=== PATIENT | female | born 1935 | race African-American/Black ===

== ENCOUNTER 2019-04-06 18:46 | Inpatient (IN) | payer MEDICARE, OTHER ==
[~2019-04-06] VITALS: Ht 162.6 cm; Wt 63.6 kg
[2019-04-06 18:51] VITALS: BP 123/90
--- NOTE | 2019-04-06 18:51 | NUR ---
ED Nurse Note: Pt BIBA med reach d/t elevated BUN 69. Pt has hx of CKD but not on dialysis. Pt is AAO x4, ambulaotry with unlabored breathing. Skin is intact.
--- NOTE | 2019-04-06 19:11 | NUR ---
ED Nurse Note: Patient resting with daughter at bedside, has no complaints at this time.
--- NOTE | 2019-04-06 19:11 | NUR ---
HAND-OFF: Report given to Phoebe ABREU.
[2019-04-06 19:38] LABS: ANION GAP 12 mmol/L (5-15); BLOOD UREA NITROGEN 75 mg/dL (7-18); CALCIUM 8.8 MG/DL (8.5-10.1); CARBON DIOXIDE 26 MMOL/L (21-32); CHLORIDE 105 MMOL/L (98-107); CREATININE 8.4 MG/DL (0.55-1.30); POTASSIUM 4.9 MMOL/L (3.5-5.1); SODIUM 143 MMOL/L (136-145)
[2019-04-06 19:51] LABS: ALANINE AMINOTRANSFERASE 7 U/L (12-78); ALBUMIN 2.9 G/DL (3.4-5.0); ALBUMIN/GLOBULIN RATIO 0.5 (1.0-2.7); ALKALINE PHOSPHATASE 74 U/L (46-116); ASPARTATE AMINO TRANSFERASE 22 U/L (15-37); BILIRUBIN,TOTAL 0.4 MG/DL (0.2-1.0); CREATINE KINASE 53 U/L (26-308)
[2019-04-06 19:57] LABS: BASOPHILS % (AUTO) 1.8 % (0.0-2.0); HEMATOCRIT 31.9 % (37.0-47.0); HEMOGLOBIN 10.2 G/DL (12.0-16.0); LYMPHOCYTES % (AUTO) 31.6 % (20.0-45.0); MEAN CORPUSCULAR VOLUME 86 FL (80-99); MONOCYTES % (AUTO) 7.5 % (1.0-10.0); NEUTROPHILS % (AUTO) 47.2 % (45.0-75.0); PLATELET COUNT 243 K/UL (150-450); RED BLOOD COUNT 3.71 M/UL (4.20-5.40); RED CELL DISTRIBUTION WIDTH 14.2 % (11.6-14.8)
--- NOTE | 2019-04-06 20:08 | NUR ---
ED Nurse Note: Patient able to ambulate to restroom to provide a urine sample with minimal assist.
[2019-04-06 20:25] VITALS: BP 168/98
[2019-04-06 20:44] LABS: APPEARANCE,URINE CLEAR; BILIRUBIN, URINE NEGATIVE (NEGATIVE); COLOR,URINE YELLOW; GLUCOSE, URINE (UA) NEGATIVE (NEGATIVE); KETONES,URINE NEGATIVE (NEGATIVE); LEUKOCYTE ESTERASE ,URINE 3+ (NEGATIVE); NITRITE,URINE NEGATIVE (NEGATIVE); PH,URINE 5 (4.5-8.0); PROTEIN,URINE 3+ (NEGATIVE); UROBILINOGEN,URINE NORMAL MG/DL (0.0-1.0)
--- NOTE | 2019-04-06 20:47 | Emergency Room Report ---
History of Present Illness General Chief Complaint: Abnormal Labs Source: Patient Present Illness HPI Patient presents with reports of increasing and worsening kidney function Patient is here with daughter who reports that the patient has refused dialysis in the past It was felt that the patient was eating less than usual Otherwise denies any vomiting or diarrhea denies any chest pain or shortness of breath daughter reports visit to [facility] recently and was told the need for dialysis Denies any cough denies any flank pain Allergies: Uncoded Allergies: ARTEM INHIBITOR (Allergy, Unknown, 04/06/19) HYDRALAZINE, HYDROXYZINE, BENICAR, (Allergy, Unknown, 04/06/19) Patient History Past Medical History: see triage record Pertinent Family History: none Last Menstrual Period: menopause Now: No Reviewed Nursing Documentation: PMH: Agreed; PSxH: Agreed Nursing Documentation-PMH Hx Cardiac Problems: Yes - stents Hx Hypertension: Yes Hx Pacemaker: No Hx Asthma: No Hx COPD: Yes Hx Diabetes: Yes Hx Cancer: No Hx Gastrointestinal Problems: Yes Hx Dialysis: No History Of Psychiatric Problem: No Hx Neurological Problems: No Hx Cerebrovascular Accident: Yes Hx Seizures: No Review of Systems All Other Systems: negative except mentioned in HPI Physical Exam Vital Signs Date Time Temp Pulse Resp B/P (MAP) Pulse Ox O2 Delivery O2 Flow Rate FiO2 04/06/19 18:41 97.9 69 16 94 Room Air 04/06/19 18:51 123/90 Sp02 EP Interpretation: reviewed, normal General Appearance: well appearing, no apparent distress Head: normocephalic, atraumatic Eyes: bilateral eye PERRL, bilateral eye EOMI ENT: hearing grossly normal, normal pharynx, TMs + canals normal, uvula midline Neck: full range of motion, supple, no meningismus, no bony tend Respiratory: lungs clear, normal breath sounds, no rhonchi, no respiratory distress, no retraction, no accessory muscle use Cardiovascular #1: normal peripheral pulses, regular rate, rhythm, no gallop, no JVD, no murmur Gastrointestinal: normal bowel sounds, non tender, soft, no mass, no organomegaly, non-distended, no guarding, no hernia, no pulsatile mass, no rebound Genitourinary: no CVA tenderness Musculoskeletal: normal inspection Neurologic: oriented x3, responsive, 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 nml as tested, motor strength/ tone normal, sensory intact Psychiatric: mood/affect normal Skin: other - Edema in both lower legs Lymphatic: no adenopathy Medical Decision Making Diagnostic Impression: Primary Impression: Renal failure ER Course Patient is a fairly complex patient with multiple differential to consideration including but not limited to cardiac cardiopulmonary and vascular emergencies Patient's kidney function is critically high concerning for acute renal failure potassium level remains appropriate Patient received further hydration and admitted for further care Labs Test 04/06/19 19:05 04/06/19 20:08 04/07/19 05:25 White Blood Count 7.0 K/UL (4.8-10.8) Red Blood Count 3.71 M/UL (4.20-5.40) Hemoglobin 10.2 G/DL (12.0-16.0) Hematocrit 31.9 % (37.0-47.0) Mean Corpuscular Volume 86 FL (80-99) Mean Corpuscular Hemoglobin 27.5 PG (27.0-31.0) Mean Corpuscular Hemoglobin Concent 32.0 G/DL (32.0-36.0) Red Cell Distribution Width 14.2 % (11.6-14.8) Platelet Count 243 K/UL (150-450) Mean Platelet Volume 5.4 FL (6.5-10.1) Neutrophils (%) (Auto) 47.2 % (45.0-75.0) Lymphocytes (%) (Auto) 31.6 % (20.0-45.0) Monocytes (%) (Auto) 7.5 % (1.0-10.0) Eosinophils (%) (Auto) 12.0 % (0.0-3.0) Basophils (%) (Auto) 1.8 % (0.0-2.0) Sodium Level 143 MMOL/L (136-145) Potassium Level 4.9 MMOL/L (3.5-5.1) Chloride Level 105 MMOL/L (98-107) Carbon Dioxide Level 26 MMOL/L (21-32) Anion Gap 12 mmol/L (5-15) Blood Urea Nitrogen 75 mg/dL (7-18) Creatinine 8.4 MG/DL (0.55-1.30) Estimat Glomerular Filtration Rate mL/min (>60) Glucose Level 108 MG/DL (74-106) Calcium Level 8.8 MG/DL (8.5-10.1) Total Bilirubin 0.4 MG/DL (0.2-1.0) Aspartate Amino Transf (AST/SGOT) 22 U/L (15-37) Alanine Aminotransferase (ALT/SGPT) 7 U/L (12-78) Alkaline Phosphatase 74 U/L (46-116) Total Creatine Kinase 53 U/L (26-308) Creatine Kinase MB 1.0 NG/ML (0.0-3.6) Creatine Kinase MB Relative Index 1.8 Troponin I 0.059 ng/mL (0.000-0.056) Total Protein 8.3 G/DL (6.4-8.2) Albumin 2.9 G/DL (3.4-5.0) Globulin 5.4 g/dL Albumin/Globulin Ratio 0.5 (1.0-2.7) Urine Color Yellow Urine Appearance Clear Urine pH 5 (4.5-8.0) Urine Specific [place] 1.015 (1.005-1.035) Urine Protein 3+ (NEGATIVE) Urine Glucose (UA) Negative (NEGATIVE) Urine Ketones Negative (NEGATIVE) Urine Blood 2+ (NEGATIVE) Urine Nitrite Negative (NEGATIVE) Urine Bilirubin Negative (NEGATIVE) Urine Urobilinogen Normal MG/DL (0.0-1.0) Urine Leukocyte Esterase 3+ (NEGATIVE) Urine RBC 2-4 /HPF (0 - 2) Urine WBC 5-10 /HPF (0 - 2) Urine Squamous Epithelial Cells Few /LPF (NONE/OCC) Urine Amorphous Sediment Few /LPF (NONE) Urine Bacteria Moderate /HPF (NONE) Rhythm Strip Diag. Results EP Interpretation: yes Rate: 80 Rhythm: NSR, no PVC's, no ectopy Chest X-Ray Diagnostic Results Chest X-Ray Diagnostic Results : Chest X-Ray Ordered: Yes # of Views/Limited/Complete: 1 View Indication: Chest Pain EP Interpretation: Yes Interpretation: no consolidation, no effusion, no pneumothorax Impression: No acute disease - Cardiomegaly Electronically Signed by: Darrius Cid DO Last Vital Signs Date Time Temp Pulse Resp B/P (MAP) Pulse Ox O2 Delivery O2 Flow Rate FiO2 04/06/19 20:25 97.9 79 15 168/98 100 Room Air Status: improved Disposition: ADMITTED INPATIENT Condition: Serious Referrals: Garcia Rm MD (PCP) Darrius Cid DO April 06, 2019 20:47
--- NOTE | 2019-04-06 21:59 | NUR ---
ED Nurse Note: Patient cleared discharge, called and gave report to Stacia ABREU. Patient is ready for transport. Report documented in log. Patient escorted to floor by Darius and RN.
[2019-04-06 22:45] VITALS: BP 138/82
[2019-04-06] MEDS ORDERED: ACETAMINOPHEN325 M1 ORAL ×2 (23:14→23:39)
[2019-04-07] VITALS: BP 147/84
[2019-04-07] MEDS ORDERED: ASPIR 8181 MG ORAL (00:27)
[2019-04-07] MEDS ORDERED: BISACODYL10 M1 RC (00:29)
[2019-04-07] MEDS ORDERED: PLAVIX75 MG ORAL (01:10)
[2019-04-07] MEDS ORDERED: CLONIDINE HCL0.2 MG PO (01:10)
[2019-04-07] MEDS ORDERED: LEXAPRO10 MG ORAL (01:12)
[2019-04-07] MEDS ORDERED: DOCUSATE SODIU100 M2 ORAL (01:12)
[2019-04-07] MEDS ORDERED: DUONEB 0.5-3(2.53 ML HHN ×2 (01:16→17:56)
[2019-04-07] MEDS ORDERED: METOPROLOL SUC100 MG ORAL (01:16)
[2019-04-07] MEDS ORDERED: GUAIFENESI100 MG/5 M ORAL (01:16)
[2019-04-07] MEDS ORDERED: LACTULOSE10 GM/153 PO (01:16)
[2019-04-07] MEDS ORDERED: LONITEN2.5 MG GT (01:17)
[2019-04-07] MEDS ORDERED: VENELEX OINTMEN60 GM TP (01:21)
[2019-04-07] MEDS ORDERED: MIRTAZAPINE7.5 MG ORAL (01:21)
[2019-04-07] MEDS ORDERED: NIFEDIPINE ER90 M3 ORAL (01:21)
[2019-04-07] MEDS ORDERED: cloNIDine 0.2mg Tab ORAL PRN (02:15)
[2019-04-07] MEDS ORDERED: guaiFENesin 100mg/5ml Liq ud ORAL SCH (02:15)
[2019-04-07] MEDS ORDERED: Albuterol/Ipratropium 3ml neb HHN PRN (02:15)
[2019-04-07] MEDS ORDERED: guaiFENesin 100mg/5ml Liq ud ORAL PRN (03:00)
[2019-04-07 04:00] VITALS: BP 121/76
[2019-04-07] MEDS: NovoLOG Insulin Flexpen SUBQ SCH ×4 (06:27→21:00)
--- NOTE | 2019-04-07 07:33 | NUR ---
NURSE NOTES: AWAKE/ALERT. C/O PAIN ON BACK AND NECK. PAIN SCALE 10/10.POSITIONED FOR COMFORT. IN NO ACUTE DISTRESS. Addendum: 04/07/19 at 0735 by ARIELLE CHAWLA RN DISREGARD ABOVE NOTATION. INCORRECT PT.
--- NOTE | 2019-04-07 07:38 | NUR ---
NURSE NOTES: AWAKE/ALERT. NO C/O PAIN.NO SOB. IN NO DISTRESS.
[2019-04-07 08:00] VITALS: BP 116/64
[2019-04-07] MEDS: Lactulose 20gm/30ml UDC ORAL SCH (08:37)
[2019-04-07] MEDS: Aspirin EC 81mg tab ORAL SCH (08:37)
[2019-04-07] MEDS: Docusate 100mg cap ORAL SCH ×2 (08:38→17:37)
[2019-04-07] MEDS ORDERED: Metoprolol Succinate XL 100mg tab ORAL SCH (09:00)
--- NOTE | 2019-04-07 11:09 | NUR ---
Social Service Note SW spoke with patient's dgt Conchita Weathers [phone] to discuss patient's desire not to start dialysis. Dgt states this is not the first time dialysis has been offered to patient. Family has had multiple discussions with patient regarding dialysis even for a short period of time, however patient has always refused. Family supports patient's decision. Family is aware patient will begin to show medical decline and are open to hospice back at [facility]. Family supports do not intubate and ok for CPR. SW met with patient confirmed her desire not to start dialysis. SW also readdressed code status and patient continues to request only DNI. SW informed Dr. Rm and Dr. Batres. Will continue to be available as needed.
--- NOTE | 2019-04-07 11:10 | Cardiology Report ---
APPROVED REPORT EKG Measurement Heart [id number] DC [id number] Sinus rhythm with premature atrial complexes Possible Left atrial enlargement Anterior infarct, age undetermined Abnormal ECG
--- NOTE | 2019-04-07 11:17 | Diagnostic Imaging Report ---
Indication: Dyspnea Comparison: None A single view chest radiograph was obtained. Findings: Mild pulmonary vascular congestion suspected with the cardiomegaly. No definite pleural effusions are seen. Aorta is ectatic. IMPRESSION: Pulmonary vascular congestion. Correlate clinically
[2019-04-07 12:01] VITALS: BP 133/69
--- NOTE | 2019-04-07 12:46 | Consultation ---
Consult Note Consult Note asked to eval by Dr Rm Chief Complaint: Abnormal Labs Source: Patient HPI Patient presents with reports of increasing and worsening kidney function Patient is here with daughter who reports that the patient has refused dialysis in the past It was felt that the patient was eating less than usual Otherwise denies any vomiting or diarrhea denies any chest pain or shortness of breath daughter reports visit to [facility] recently and was told the need for dialysis Denies any cough denies any flank pain Allergies: Uncoded Allergies: ARTEM INHIBITOR (Allergy, Unknown, 04/06/19) HYDRALAZINE, HYDROXYZINE, BENICAR, (Allergy, Unknown, 04/06/19) Hx Cardiac Problems: Yes - stents Hx Hypertension: Yes Hx COPD: Yes Hx Diabetes: Yes Hx Gastrointestinal Problems: Yes Hx Dialysis: No History Of Psychiatric Problem: No Hx Neurological Problems: No Hx Cerebrovascular Accident: Yes Hx Seizures: No interviewed examined Assessment/Plan IMP & PLAN: ESRD need for dialysis patient refused in the past and refuses now SS contacted to get the DPOA for further discussion meanwhile supportive care impliment comfort care if no further aggressive Rx is planned ! Lenny Bowen MD April 07, 2019 12:46
--- NOTE | 2019-04-07 13:07 | NUR ---
RD ASSESSMENT & RECOMMENDATIONS SEE CARE ACTIVITY FOR COMPLETE ASSESSMENT DAILY ESTIMATED NEEDS: Needs based on ESRD NO HD, DM 63.6kg 25-35 kcals/kg 0134-0214 total kcals .6-.8 g protein/kg 38-51 g total protein Fluid per DM NUTRITION DIAGNOSIS: Decrease sodium and protein needs r/t renal dysfunction as evidenced by pt w/ ESRD, creat 8.4, refusing HD at this time. 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 -> No recs for pro restriction w/ poor po intake -> Rec NEPRO 1 tetra doug daily (425 kcal/19g pro each) 4) VISCOSE CELLAR WORKER EVAL for appropriate texture for improved po intake
--- NOTE | 2019-04-07 14:47 | NUR ---
CASE MANAGEMENT:REVIEW 83 YR OLD FEMALE BIBA FROM [facility] CC: ABNORMAL LABS SI: DEHYDRATION. RENAL FAILURE 97.8 69 16 146/75 94% ON RA BUN+75 CR+8.4 TROPONIN(+) 0.059 IS: 500CC NS BOLUS CHEST XRAY : TO MED/SURG 3 EAST INTERQUAL CRITERIA MET
[2019-04-07 15:32] VITALS: BP 155/95
[2019-04-07] MEDS ORDERED: ACETAMINOPHEN325 M1 ORAL (17:53)
--- NOTE | 2019-04-07 17:55 | NUR ---
LEGAL SUPPORT SPECIALIST NOTES CLINICALS FAXED TO [facility] FOR PLANNED DISCHARGE IN AM. WILL FOLLOW UP WITH ACCEPTANCE.
[2019-04-07] MEDS ORDERED: PROCARDIA XL30 MG ORAL ×2 (18:00→18:13)
[2019-04-07] MEDS ORDERED: METOPROLOL SUCC50 MG ORAL ×2 (18:01→18:10)
[2019-04-07] MEDS ORDERED: NOVOLOG100 UNIT/5 (18:03)
[2019-04-07] MEDS ORDERED: NOVOLOG100 UNIT/5 SUBQ (18:05)
--- NOTE | 2019-04-07 18:40 | NUR ---
NURSE NOTES: c/o feeling anxious. requesting for something to relax and calm her down. dr still called left message to return call.
--- NOTE | 2019-04-07 19:00 | NUR ---
NURSE NOTES: QUIET IN BED. IN NO DISTRESS.
--- NOTE | 2019-04-07 19:26 | NUR ---
HAND-OFF: Report given to Anjelica ANDERSON RN.
[2019-04-07 20:00] VITALS: BP 167/89
--- NOTE | 2019-04-07 20:00 | NUR ---
NURSE NOTES: Patient in bed awake and oriented. VSS. No SOB noted. IV site intact and flushing well. Able to tolerate IV fluids well. Needs attended. Due meds given. Call light within reach. In stable condition.
[2019-04-08] VITALS: BP 182/109
--- NOTE | 2019-04-08 00:12 | NUR ---
NURSE NOTES: Patient BP 182/110 Clonidine 0.1 given. Will recheck BP. No complaints of headaches, blurry vision or any signs of pain.
[2019-04-08 00:40] VITALS: BP 180/109
--- NOTE | 2019-04-08 00:43 | NUR ---
NURSE NOTES: Re checked patients blood pressure after giving clonidine 0.1 BP 180/110, called Dr Rm with orders of Clonidine 0.2 mg. Will cont to recheck patients BP.
[2019-04-08] MEDS ORDERED: MINOXIDIL2.5 MG PO ×2 (00:51→07:16)
[2019-04-08] MEDS ORDERED: Minoxidil 2.5mg tab ORAL SCH ×2 (01:00→09:00)
[2019-04-08 04:00] VITALS: BP 146/100
--- NOTE | 2019-04-08 04:30 | History and Physical Report ---
DATE OF ADMISSION: 04/06/2019 HISTORY: This is an 83-year-old female, who came from [facility]-way where she had her labs done that were showing that BUN and creatinine were high. The patient also has been losing weight, poor appetite, and is slightly deteriorating due to multiple medical problems, also has angioedema and recurrent nausea and vomiting. PAST MEDICAL HISTORY: Significant for chronic renal failure, the patient has been scheduled for hemodialysis and has been admitted multiple times with the same reason; recurrent nausea, vomiting, abdominal pain; diabetes; and hypertension. ALLERGIES: NKA. MEDICATIONS: See the list. SOCIAL HISTORY: The patient lives at half-way, mostly bedbound. REVIEW OF SYSTEMS: She had generalized weakness, tired, fatigue, recurrent nausea and vomiting, and weight loss. PHYSICAL EXAMINATION: GENERAL: This is an elderly female, who is currently awake, feeling sick, and sitting on the bedside. VITAL SIGNS: Blood pressure is 140/70, pulse 70, and respirations 18. No fever. SKIN: Good skin turgor. HEENT: NAD. CHEST: Bilaterally few crackles. CARDIOVASCULAR: Regular rhythm. Tachycardia. ABDOMEN: Soft. Positive bowel sounds. Nontender. EXTREMITIES: No CCE. NEUROLOGICAL: No focal deficit. GENITOURINARY: Deferred. LABORATORY DATA: Laboratory exams as stated earlier, the patient has elevated BUN and creatinine. White counts are normal. Hemoglobin also low. ASSESSMENT: 1. Worsening of chronic renal failure. 2. Hypertension. 3. Anemia. 4. Diabetes. 5. Sacral decubitus ulcers. PLAN: 1. IV fluid. 2. Nephrology consult discussed with Dr. Bowen. 3. Continue medical treatment. 4. Discussed with the daughter, who called my office. Discussed with her regarding the patient's comfort care. No dialysis as the patient is going to live at the half-way. Discussed with charge nurse. Discharge plan to [facility] tomorrow. Abhinav Rm M.D. DR: RUBEN JOB#: [id number] CC: JEANA
[2019-04-08] MEDS: NovoLOG Insulin Flexpen SUBQ SCH ×2 (06:30→11:30)
[2019-04-08 07:25] LABS: BASOPHILS % (AUTO) 1.5 % (0.0-2.0); EOSINOPHILS % (AUTO) 11.1 % (0.0-3.0); HEMATOCRIT 31.3 % (37.0-47.0); HEMOGLOBIN 9.9 G/DL (12.0-16.0); LYMPHOCYTES % (AUTO) 36.2 % (20.0-45.0); MEAN CORPUSCULAR VOLUME 88 FL (80-99); MONOCYTES % (AUTO) 6.8 % (1.0-10.0); NEUTROPHILS % (AUTO) 44.4 % (45.0-75.0); PLATELET COUNT 249 K/UL (150-450); RED BLOOD COUNT 3.55 M/UL (4.20-5.40); RED CELL DISTRIBUTION WIDTH 14.6 % (11.6-14.8); WHITE BLOOD COUNT 7.3 K/UL (4.8-10.8)
--- NOTE | 2019-04-08 07:34 | NUR ---
NURSE NOTES: awake/alert.no pain. in no acute distress.
[2019-04-08 08:00] VITALS: BP 161/98
[2019-04-08 08:02] LABS: ALANINE AMINOTRANSFERASE 8 U/L (12-78); ALBUMIN 2.9 G/DL (3.4-5.0); ALBUMIN/GLOBULIN RATIO 0.5 (1.0-2.7); ALKALINE PHOSPHATASE 59 U/L (46-116); ANION GAP 14 mmol/L (5-15); ASPARTATE AMINO TRANSFERASE 18 U/L (15-37); BILIRUBIN,TOTAL 0.4 MG/DL (0.2-1.0); BLOOD UREA NITROGEN 71 mg/dL (7-18); CALCIUM 9.2 MG/DL (8.5-10.1); CARBON DIOXIDE 23 MMOL/L (21-32); CHLORIDE 103 MMOL/L (98-107); CHOLESTEROL 274 MG/DL (< 200); CREATINE KINASE 38 U/L (26-308); CREATININE 7.6 MG/DL (0.55-1.30); GAMMA GLUTAMYL TRANSPEPTIDASE 35 U/L (5-85); HDL CHOLESTEROL 58 MG/DL (40-60); PHOSPHORUS 5.7 MG/DL (2.5-4.9); SODIUM 140 MMOL/L (136-145); TRIGLYCERIDES 142 MG/DL (30-150)
[2019-04-08] MEDS: Aspirin EC 81mg tab ORAL SCH (08:39)
[2019-04-08] MEDS: Docusate 100mg cap ORAL SCH (08:41)
[2019-04-08] MEDS: Lactulose 20gm/30ml UDC ORAL SCH (08:41)
[2019-04-08] MEDS ORDERED: Metoprolol Succinate XL 50mg tab ORAL SCH (09:00)
[2019-04-08 09:07] LABS: FERRITIN 138 NG/ML (8-388)
[2019-04-08 09:10] LABS: % IRON SATURATION 33 % (15-50); IRON 75 ug/dL (50-175); TOTAL IRON BINDING CAPACITY 230 ug/dL (250-450)
[2019-04-08 09:26] VITALS: BP 121/70
[2019-04-08] MEDS ORDERED: PROCARDIA XL90 M4 ORAL (09:49)
[2019-04-08] MEDS ORDERED: METOPROLOL SUC100 MG ORAL (09:52)
--- NOTE | 2019-04-08 10:04 | NUR ---
DISCHARGE PLAN PATIENT IS DISCHARGING TO [facility] ROOM 213-3 SKILLED T: [phone] FOR REPORT TO GOVERNMENT SERVICE EXECUTIVE [facility] HAS BEEN ARRANGED FOR [address] [employer]ATOR
--- NOTE | 2019-04-08 11:12 | Nephrology Progress Note ---
Assessment/Plan Problem List: (1) Abnormal laboratory test result (2) ESRD (end stage renal disease) (3) Anemia in CKD (chronic kidney disease) (4) Hypertensive kidney disease Plan declines dialysis current support / comfort care ? DC Subjective ROS Limited/Unobtainable: No Constitutional: Reports: malaise, weakness Objective Objective Last 24 Hour Vital Signs Date Time Temp Pulse Resp B/P (MAP) Pulse Ox O2 Delivery O2 Flow Rate FiO2 04/08/19 09:26 58 121/70 (87) 04/08/19 08:40 71 161/98 04/08/19 08:40 71 161/98 04/08/19 08:39 161/98 04/08/19 08:14 Room Air 04/08/19 08:00 98.4 71 16 161/98 (119) 99 04/08/19 06:10 155/105 04/08/19 04:00 98.3 73 20 146/100 (115) 97 04/08/19 00:40 78 16 180/109 (132) 98 04/08/19 00:00 98.2 87 16 182/109 (133) 94 04/07/19 23:39 182/110 04/07/19 21:00 Room Air 04/07/19 20:00 98.4 80 16 167/89 (115) 97 04/07/19 15:32 97.1 70 19 155/95 (115) 97 04/07/19 12:01 98.2 68 20 133/69 (90) 99 Intake and Output 04/07/19 04/08/19 18:59 06:59 Intake Total 1710 ml 525 ml Balance 1710 ml 525 ml Intake Oral 810 ml IV Total 900 ml 525 ml # Voids 3 2 Laboratory Tests 04/08/19 05:51: White Blood Count 7.3, Red Blood Count 3.55L, Hemoglobin 9.9L, Hematocrit 31.3L , Mean Corpuscular Volume 88, Mean Corpuscular Hemoglobin 27.8, Mean Corpuscular Hemoglobin Concent 31.6L, Red Cell Distribution Width 14.6, Platelet Count 249, Mean Platelet Volume 6.6, Neutrophils (%) (Auto) 44.4L, Lymphocytes (%) (Auto) 36.2, Monocytes (%) (Auto) 6.8, Eosinophils (%) (Auto) 11.1H, Basophils (%) (Auto) 1.5, Sodium Level 140, Potassium Level 4.0, Chloride Level 103, Carbon Dioxide Level 23, Anion Gap 14, Blood Urea Nitrogen 71H, Creatinine 7.6H, Estimat Glomerular Filtration Rate , Glucose Level 70L, Uric Acid 10.4H, Calcium Level 9.2, Phosphorus Level 5.7H, Magnesium Level 2.3, Total Bilirubin 0.4, Gamma Glutamyl Transpeptidase 35, Aspartate Amino Transf ( AST/SGOT) 18, Alanine Aminotransferase (ALT/SGPT) 8L, Alkaline Phosphatase 59, Total Creatine Kinase 38, C-Reactive Protein, Quantitative 1.5H, Pro-B-Type Natriuretic Peptide 26230K, Total Protein 8.2, Albumin 2.9L, Globulin 5.3, Albumin/Globulin Ratio 0.5L, Triglycerides Level 142, Cholesterol Level 274H, LDL Cholesterol 179H, HDL Cholesterol 58, Cholesterol/HDL Ratio 4.7H, Vitamin B12 Level 1134H, Thyroid Stimulating Hormone (TSH) 5.770H 04/08/19 05:57: Iron Level 75, Total Iron Binding Capacity 230L, Percent Iron Saturation 33, Unsaturated Iron Binding 155, Ferritin 138, Folate 13.1 Height (Feet): 5 Height (Inches): 4.00 Weight (Pounds): 140 General Appearance: no apparent distress, lethargic Cardiovascular: normal rate Respiratory/Chest: decreased breath sounds Abdomen: distended Lenny Bowen MD April 08, 2019 11:12
[2019-04-08 12:00] VITALS: BP 141/88
--- NOTE | 2019-04-08 13:45 | NUR ---
NURSE NOTES: DISCHARGED TO [facility] VIA AMBULANCE IN STABLE CONDITION. TRANSFER PAPERS AND ORDERS SENT WITH PT. REPORT GIVEN TO JEFFERY ABREU.
--- NOTE | 2019-04-09 10:19 | Discharge Summary ---
Discharge Summary Discharge Summary _ DATE OF ADMISSION: 04/06/2019 DATE OF DISCHARGE: 04/08/2019 DISCHARGED BY : Dr. Abhinav Rm CONSULTANTS: Dr. Lenny Bowen BRIEF HOSPITAL COURSE: Patient is an 83-year-old female, who is from [place], was taken to ED due to abnormal labs. Patient had elevated BUN and creatinine. There was noted to be losing weight, had poor appetite and was slightly deteriorating due to multiple medical problems. She had angioedema and recurrent nausea and vomiting. She had medical history significant for chronic renal failure. The patient was scheduled for hemodialysis and had been admitted multiple times with the same reason. On evaluation at the ED, vital signs were stable. Blood work did not show any leukocytosis. Hemoglobin 10, hematocrit 32. Electrolytes were normal. BUN was elevated to 75, creatinine two 8.4. Urinalysis showed 2+ protein, 2+ blood , negative nitrite, 2+ leukocyte esterase, 2-4 RBC, 5-10 WBC. Chest x-ray showed pulmonary vascular congestion. She was given IV hydration. She was admitted for evaluation of renal failure. Aquaculture Program Director was consulted. Patient daughter reported she was recently at [facility] and was told he needed dialysis. Patient had refused dialysis in the past and persistently refused. Social service was consulted to get DPOA for further discussion. She was given supportive care. Home meds were continued. Family and patient declined hemodialysis. CODE STATUS continued to be DNI, okay for CPR. Patient was then discharged back to [facility]. FINAL DIAGNOSES: Worsening end-stage renal disease, refused hemodialysis Hypertension Abnormal laboratory test result Anemia in CKD Hypertensive kidney disease Comfort care DISPOSITION: Patient was discharged to a SNF. DISCHARGE MEDICATIONS: Refer to Discharge Medication List. I have been assigned to complete a discharge summary on this account, I was not involved with the patient's management. Kassandra Donato NP April 09, 2019 10:19
== END 2019-04-08 13:45 | DRG 682 ==
LOC: EDBD 18:46 → EMR 19:18 → 3E 19:50 → EDBEDREQ 21:52 → 3E 04-07 00:18
DX: I12.0 Hypertensive chronic kidney disease with stage 5 chronic kidney disease or end stage renal disease (principal); N18.6 End stage renal disease; N17.9 Acute kidney failure, unspecified; L89.152 Pressure ulcer of sacral region, stage 2; Z51.5 Encounter for palliative care; E11.22 Type 2 diabetes mellitus with diabetic chronic kidney disease; Z99.2 Dependence on renal dialysis; D64.9 Anemia, unspecified; Z91.15 Patient's noncompliance with renal dialysis; D63.1 Anemia in chronic kidney disease; Z88.8 Allergy status to other drugs, medicaments and biological substances
CPT/HCPCS: 36415; 71045; 80053; 80061; 81003; 82550; 82553; 82607; 82728; 82746; 82962; 82977; 83036; 83540; 83550; 83735; 83880; 84100; 84443; 84484; 84550; 85025; 86140; 87081; 87086; 87181; 93005; 99285; J1815